=== PATIENT | male | born 1955 | race Caucasian/White ===

== ENCOUNTER 2016-07-22 15:22 | Emergency (ER) | payer BC ==
[2016-07-22 15:54] LABS: HEMOGLOBIN 14.1 gm/dl (14.0-17.5); RED BLOOD COUNT 4.47 M/UL (4.20-5.50); WHITE BLOOD COUNT 8.1 K/UL (4.5-11.0)
[2016-07-22 16:29] LABS: BUN/CREATININE RATIO 14 (0-10)
== END 2016-07-22 20:45 | disposition home or self-care (01) ==
LOC: ER1 15:22
PROVIDERS: Preventive Medicine Occupational Medicine
DX: S09.90XA Unspecified injury of head, initial encounter (principal); S40.019A Contusion of unspecified shoulder, initial encounter; S20.219A Contusion of unspecified front wall of thorax, initial encounter; I10 Essential (primary) hypertension; E11.9 Type 2 diabetes mellitus without complications; V43.52XA Car driver injured in collision with other type car in traffic accident, initial encounter
CPT/HCPCS: 36415; 70450; 71260; 72125; 80053; 80307; 81001; 82150; 82550; 82553; 83690; 83874; 84484; 85025; 93005; 99284; G0480; J7030; J7050; Q9962